=== PATIENT | female | born 1955 | race Caucasian/White ===

== ENCOUNTER → 2019-12-29 | Outpatient (CLI) | payer OTHER ==
[~2019-12-29] MED LIST: AMITRIPTYLINE25 MG PO; CLARITIN10 MG PO; COMPAZINE10 MG PO; GLUCOSAMINE CHO1 CAP PO; NASONEX0.05 MG/AC NS; SINGULAIR10 MG PO; SPIRONOLACTONE1 TAB PO; SYNTHROID,LEVO50 MCG PO; VICODIN 500 MG-1 TAB PO; VITAMIN B12100 MCG PO; VITAMIN C1 TAB PO; VITAMIN D31000 IU PO; Vicodin 5/500 505 MG PO
== END | disposition home or self-care (01) ==
LOC: US 10:30
DX: E11.29 Type 2 diabetes mellitus with other diabetic kidney complication (principal); E78.5 Hyperlipidemia, unspecified; R79.89 Other specified abnormal findings of blood chemistry; J30.9 Allergic rhinitis, unspecified

== ENCOUNTER 2020-04-13 04:33 | Emergency (ER) | payer OTHER ==
[~2020-04-13] VITALS: Ht 165.1 cm; Wt 81.6 kg
[2020-04-13 04:35] VITALS: BP 140/17
== END 2020-04-13 06:34 | disposition expired ==
LOC: ED 04:33
DX: I46.9 Cardiac arrest, cause unspecified (principal); Z88.8 Allergy status to other drugs, medicaments and biological substances; Z79.899 Other long term (current) drug therapy